=== PATIENT | male | born 1950 | race Two or more races ===

== ENCOUNTER 2024-03-17 14:48 | Emergency (ER) | payer OTHER ==
[~2024-03-17] VITALS: Ht 170.2 cm; Wt 72.6 kg
[2024-03-17] MEDS ORDERED: SYNTHROID125 MCG PO (15:17)
[2024-03-17 15:18] VITALS: BP 148/75; O2SAT 98
[2024-03-17] MEDS ORDERED: DEXAMETHASONE SODIUM PHOSPHATE 4 MG/ML VIAL IM STA (16:07)
[2024-03-17] MEDS ORDERED: ORPHENADRINE CITRATE 30 MG/ML AMPUL IM STA (16:08)
[2024-03-17] MEDS ORDERED: NORFLEX100MG PO (18:18)
== END 2024-03-17 18:56 | disposition home or self-care (01) ==
LOC: ER 14:50
DX: S49.81XA Other specified injuries of right shoulder and upper arm, initial encounter (principal); X58.XXXA Exposure to other specified factors, initial encounter; Y93.89 Activity, other specified; Y92.89 Other specified places as the place of occurrence of the external cause; Y99.9 Unspecified external cause status
CPT/HCPCS: 73030; 96372; 99283; J1100; J2360

== ENCOUNTER 2025-01-07 09:21 | Outpatient (CLI) | payer OTHER ==
[~2025-01-07 09:21] MED LIST: NORFLEX100MG PO; SYNTHROID125 MCG PO
== END 2025-01-07 09:23 | disposition home or self-care (01) ==
LOC: RAD 09:21
PROVIDERS: ATTEND Internal Medicine
DX: J30.9 Allergic rhinitis, unspecified (principal)

== ENCOUNTER 2025-02-10 14:17 | Emergency (ER) | payer OTHER ==
[~2025-02-10] VITALS: Ht 170.2 cm; Wt 80.3 kg
[2025-02-10] MEDS ORDERED: CLOPIDOGREL BIS75 MG PO (15:14)
[2025-02-10] MEDS ORDERED: PANTOPRAZOLE SO40 MG PO (15:14)
[2025-02-10] MEDS ORDERED: METHYLPREDNISOLO4 M1 PO (15:14)
[2025-02-10] MEDS ORDERED: METOPROLOL SUCC50 MG PO (15:14)
[2025-02-10] MEDS ORDERED: ST. JOSEPH ASPI81 M2 PO (15:14)
[2025-02-10] MEDS ORDERED: ATORVASTATIN CA40 MG PO (15:15)
[2025-02-10] MEDS ORDERED: BENZONATATE 100 MG CAPSULE PO STA (16:32)
[2025-02-10 17:21] LABS: BASO % 0.6 % (0.1-1.2); EOS # 0.08 (0.04-0.54); EOS % 0.6 % (0.7-7.0); LYMPH # 0.83 (1.18-3.74); LYMPH % 6.0 % (19.3-53.1); MEAN PLATELET VOLUME 10.60 fl (9.4-12.4); MONO # 1.27 (0.24-0.82); MONO % 9.2 % (4.7-12.5); NEUT # 11.40 (1.56-6.13); NEUT % 82.6 % (34.0-71.1); RED CELL DISTRIBUTION WIDTH 13.2 % (11.6-14.4)
[2025-02-10 18:21] LABS: COVID-19 AG POSITIVE (NEGATIVE)
[2025-02-10] MEDS ORDERED: OSEL75CA PO (18:31)
[2025-02-10] MEDS ORDERED: GILTUSS HONEY118 ML PO (18:31)
[2025-02-10] MEDS ORDERED: ACETAMINOPHEN 500 MG GEL..CAP PO ONE (18:39)
[2025-02-10] MEDS ORDERED: ACETAMINOPHEN 500 MG GEL..CAP PO STA (18:41)
== END 2025-02-10 18:46 | disposition home or self-care (01) ==
LOC: ER 14:37
PROVIDERS: General Practice
DX: U07.1 COVID-19 (principal); B34.9 Viral infection, unspecified; E03.8 Other specified hypothyroidism; Z86.69 Personal history of other diseases of the nervous system and sense organs; R73.03 Prediabetes; J10.1 Influenza due to other identified influenza virus with other respiratory manifestations